=== PATIENT | female | born 1950 | race Caucasian/White ===

== ENCOUNTER 2018-01-05 11:47 | Observation (INO) | payer OTHER ==
[~2018-01-05] VITALS: Ht 157.5 cm; Wt 68.6 kg
[~2018-01-05 11:47] MED LIST: LEVOTHROID112 MCG PO; MAGNESIUM200 MG PO; MOTRIN800 MG PO; NORVASC5 MG PO; PRAVACHOL20 MG PO
[2018-01-05 12:37] LABS: HEMATOCRIT 39.5 % (36.0-46.0); HEMOGLOBIN 13.4 G/DL (11.9-15.5); MCH 31.3 PG (29.0-34.0); MCHC 33.9 G/DL (30.0-36.0); MCV 92.3 FL (83-99); PLATELET COUNT 250 K/uL (156-360); RBC DIS.WIDTH-CV 12.3 % (11.8-14.6); RBC DIS.WIDTH-SD 41.2 % (39-53); RED BLOOD COUNT 4.28 M/uL (3.80-5.20); WHITE BLOOD COUNT 8.7 K/uL (4.1-10.2)
[2018-01-05 12:48] LABS: CHLORIDE 108 mEq/L (99-109); POTASSIUM 3.8 mEq/L (3.7-5.4); SODIUM 141 mEq/L (136-147)
[2018-01-05 12:49] LABS: GLUCOSE 94 mg/dL (70-99)
[2018-01-05 12:53] LABS: CREATININE 0.8 mg/dL (0.6-1.3); GFR ESTIMATE (CALCULATED) > 59 mL/min/
[2018-01-05 12:54] LABS: UREA NITROGEN (BUN) 16 mg/dL (9-23)
[2018-01-05 12:56] LABS: TROP-I INTERPRETATION NEGATIVE; TROPONIN-I < 0.01 ng/mL (0.0-0.30)
[2018-01-05 15:06] LABS: D-DIMER ELISA < 150.00 ng/mLDDU (<230)
[2018-01-05] MEDS ORDERED: CRESTOR5 MG PO (15:50)
[2018-01-05] MEDS ORDERED: RESTASIS MULTI5.5 ML BOTH EYES (15:51)
[2018-01-05] MEDS ORDERED: ASPIR 8181 M1 PO (15:51)
[2018-01-05] MEDS ORDERED: ASCORBIC ACID500 M3 PO (15:54)
[2018-01-05] MEDS ORDERED: MEGA RED PO (15:56)
[2018-01-05] MEDS ORDERED: BEE PROPOLIS PO (15:56)
[2018-01-05] MEDS ORDERED: PRESERVISION A1 EAC2 PO ×2 (15:58→15:59)
[2018-01-05] MEDS ORDERED: CO Q-1030 MG PO (15:58)
[2018-01-05] MEDS ORDERED: JOINT SUPPORT1 EACH PO (15:58)
[2018-01-05] MEDS ORDERED: CITRICAL PO ×2 (16:00→16:01)
[2018-01-05] MEDS ORDERED: VITAMIN D2000 UNI1 PO (16:01)
[2018-01-05] MEDS ORDERED: TURMERIC 500 M1 EACH PO (16:02)
[2018-01-05] MEDS ORDERED: OMEGA PO (16:03)
[2018-01-05] MEDS ORDERED: MULTI PO (16:03)
[2018-01-05 16:11] VITALS: BP 170/79
[2018-01-05 18:08] LABS: TROP-I INTERPRETATION NEGATIVE; TROPONIN-I < 0.01 ng/mL (0.0-0.30)
[2018-01-05 19:12] VITALS: BP 137/73
[2018-01-05 23:32] VITALS: BP 138/72
[2018-01-06 01:30] LABS: TROP-I INTERPRETATION NEGATIVE; TROPONIN-I < 0.01 ng/mL (0.0-0.30)
[2018-01-06 03:44] VITALS: BP 142/68
[2018-01-06 08:00] VITALS: BP 132/72
== END 2018-01-06 11:56 | disposition home or self-care (01) ==
LOC: EME 11:47 → EDOF 13:50 → 4SOUTH 13:50 → EDOF 13:50 → ENRESERV 13:52 → EDOF 14:13 → ENRESERV 14:55 → 4SOUTH 16:06 → ENPENDDIS 01-06 10:27 → 4SOUTH 01-06 11:56
PROVIDERS: Internal Medicine
DX: R07.9 Chest pain, unspecified (principal); M25.512 Pain in left shoulder; I10 Essential (primary) hypertension; E78.5 Hyperlipidemia, unspecified; E03.9 Hypothyroidism, unspecified; Z82.49 Family history of ischemic heart disease and other diseases of the circulatory system; Z82.3 Family history of stroke; Z88.5 Allergy status to narcotic agent
CPT/HCPCS: 71046; 80048; 84484; 85027; 85379; 93005; 99281; 99285; G0378; J1644